=== PATIENT | female | born 1965 | race Caucasian/White ===

== ENCOUNTER 2022-01-21 14:49 | Emergency (ER) | payer MEDICAID ==
[2022-01-21 15:01] VITALS: BP 154/100
[2022-01-21] MEDS ORDERED: ACETAMINOPHEN 325 MG TABLET PO STA (15:08)
--- NOTE | 2022-01-21 15:13 | ED Physician Documentation ---
PD HPI BACK PAIN - Stated complaint Stated Complaint: BACK PAIN - Chief complaint Chief Complaint: Back Pain - History obtained from History obtained from: Patient - History of Present Illness Timing - onset: Today Timing - duration: Hours (5) Timing - details: Gradual onset Pain level max: 7 Pain level now: 5 Location: Mid, Lower, Right Quality: Pain, Spasm Associated symptoms: No: Fever, Weakness, Numbness, Incontinent of urine, Unable to urinate, Hematuria, Incontinent of stool Improves with: Rest Worsened by: Movement Contributing factors: No: Anticoagulated, Cancer, IVDA - Additional information Additional information: 56-year-old female states that she was returning from a cruise to [place] when she slipped and fell, landing on her right low back. She states minimal pain initially, but after the car ride home she began to develop increasing pain. Decided to come in for evaluation. Has not taken anything for pain. No loss of bowel or bladder control. No IV drug use. Does not take any home medications. Worse with movement, better with rest. Review of Systems Constitutional: denies: Fever, Chills Cardiac: denies: Chest pain / pressure, Palpitations Respiratory: denies: Cough GI: denies: Vomiting, Diarrhea : denies: Now EGA Skin: denies: Rash Musculoskeletal: denies: Neck pain Neurologic: denies: Focal weakness, Numbness, Headache PD PAST MEDICAL HISTORY - Past Medical History Past Medical History: No - Past Surgical History Past Surgical History: No - Present Medications Home Medications: Ambulatory Orders Medication Instructions Recorded Confirmed Meloxicam [Mobic] 7.5 mg PO BID PRN #20 tablet 01/21/22 Ondansetron Odt [Zofran] 4 mg TL Q6H PRN #10 tablet 01/21/22 Oxycodone HCl/Acetaminophen 1 - 2 each PO Q6H PRN #10 tablet 01/21/22 [Percocet 5-325 mg Tablet] - Allergies Allergies/Adverse Reactions: Allergies Allergy/AdvReac Type Severity Reaction Status Date / Time codeine AdvReac Emesis Verified 01/21/22 15:01 - Living Situation Living Situation: reports: With family Living Arrangement: reports: At home - Social History Does the pt smoke?: No Smoking Status: Never smoker - Family History Family history: reports: Non contributory PD ED PE NORMAL - Vitals Vital signs reviewed: Yes - General General: Alert and oriented X 3, No acute distress - HEENT HEENT: PERRL, Moist mucous membranes - Neck Neck: Supple, no meningeal sign - Cardiac Cardiac: RRR, Strong equal pulses - Respiratory Respiratory: No respiratory distress, Clear bilaterally - Abdomen Abdomen: Soft, Non tender, Non distended - Back Back: Other (Mild mid spine tenderness to palpation over the mid lumbar spine. No step-off or deformity. Neurovascular intact. Also has some midline tenderness over the sacrum.) - Derm Derm: Warm and dry - Neuro Neuro: Alert and oriented X 3, No motor deficit, No sensory deficit, Other (Normal bilateral lower extremity patellar and ankle jerk reflexes. Normal great toe extension bilaterally. no saddle anesthesia) - Psych Psych: Normal mood, Normal affect Results - Vitals Vitals: Vital Signs - 24 hr 01/21/22 14:58 Temperature 37.3 C Heart Rate 63 Respiratory 16 Rate Blood Pressure 154/100 H O2 Saturation 100 Oxygen O2 Source Room air - Rads (name of study) Lumbar spine x-ray Radiology: Final report received, EMP read contemporaneously, See rad report Sacrum and coccyx x-ray Radiology: Final report received, EMP read contemporaneously, See rad report PD MEDICAL DECISION MAKING - ED course Complexity details: reviewed results, re-evaluated patient, considered differential (No cauda equina, no spinal epidural abscess, no fracture, no aortic dissection or evidence of aneursym rupture), d/w patient, d/w family ED course: No acute findings on x-ray of the lumbar spine or sacrum. Pain improved. Ambulating well. No evidence of cauda equina, epidural abscess. No indication for advanced imaging. Will prescribe pain medication for home, encourage gentle stretching and have her follow-up with her doctor. Patient counseled regarding signs and symptoms for which I believe and urgent re-evaluation would be necess lorena. Patient with good understanding of and agreement to plan and is comfortable going home at this time This document was made in part using voice recognition software. While efforts are made to proofread this document, sound alike and grammatical errors may occur. Departure - Departure Disposition: 01 Home, Self Care Clinical Impression: Back strain Qualifiers: Encounter type: initial encounter Qualified Code(s): S39.012A - Strain of muscle, fascia and tendon of lower back, initial encounter Condition: Good Instructions: ED Sprain Strain Lumbar Follow-Up: your,doctor in 1 week [Other] Prescriptions: Meloxicam [Mobic] 7.5 mg PO BID PRN #20 tablet PRN Reason: Pain Oxycodone HCl/Acetaminophen [Percocet 5-325 mg Tablet] 1 - 2 each PO Q6H PRN #10 tablet PRN Reason: pain Ondansetron Odt [Zofran] 4 mg TL Q6H PRN #10 tablet PRN Reason: Nausea / Vomiting Comments: Your prescriptions were sent to [facility] in [place]. Please follow-up with your doctor for further care. Your x-rays do not show any acute abnormalities today. I am prescribing a short course of narcotic pain medication for you. These are potentially dangerous and addictive medications that should be used carefully. These medications may constipate you. Take an [id number]-tfuqtpq stool softener (docusate) twice daily with plenty of water while taking these medications. If you go 24 hours without a bowel movement, take [id number]-[id number] miralax, per package instructions. Do not drink or drive while taking these medications. If you received narcotic or sedating medications while in the emergency department, do not drive for 24 hours. Store this medication in a safe, secure place and out of reach of children. It is a violation of federal law to give or sell this medication to another person or to use in a manner other than prescribed. The ED will not refill narcotic prescriptions, including prescriptions lost or stolen. To dispose of unwanted medications: 1. [facility] at [address] in [place] has a medication drop box. They accept prescription medications (in pill form) Sunday through Sunday 9:00 a.m. to 5:00 p.m. 2. The [facility] [employer] accepts prescription medications (in pill form only) for disposal year round. Call for more information. 3. Contact the [facility] for the next [facility] sponsored prescription drug collection event. , [phone], or [phone]; Discharge Date/Time: 01/21/22 16:46
--- NOTE | 2022-01-21 16:29 | XRAY Report ---
PROCEDURE: Lumbar Spine 2 View INDICATIONS: fall, back pain TECHNIQUE: 2 views of the lumbar spine were acquired. COMPARISON: None. FINDINGS: Bones: 5 [id number] vertebrae are present. There is normal bony alignment. No vertebral body compression fractures. No suspicious bony lesions. Convex left thoracolumbar scoliosis present. Hyp ertrophic facet joints noted in the lower lumbar spine. Disc space narrowing and anterior aspect pres ent at the thoracolumbar junction Soft tissues: Overlying bowel gas pattern is normal. No suspicious soft tissue calcifications. Aor tic sclerotic vascular calcification noted IMPRESSION: Degenerative facet arthropathy without fracture or malalignment Reviewed by: Bret Puentes MD on 01/21/2022 3:28 PM CEDRIC Approved by: Bret Puentes MD on 01/21/2022 3:28 PM CEDRIC Station ID: [id number]
--- NOTE | 2022-01-21 16:30 | XRAY Report ---
PROCEDURE: Sacrum/Coccyx INDICATIONS: fall, back pain TECHNIQUE: 3 views of the sacrum and coccyx acquired. COMPARISON: None FINDINGS: Bones: No fractures or dislocations. No suspicious bony lesions. Soft tissues: Visualized bowel gas pattern is normal. No suspicious soft tissue densities. Multipl e phleboliths are present in the pelvis IMPRESSION: Unremarkable sacrococcygeal radiographs Reviewed by: Bret Puentes MD on 01/21/2022 3:29 PM AKDT Approved by: Bret Puentes MD on 01/21/2022 3:29 PM AKDT Station ID: [id number]
[2022-01-21] MEDS ORDERED: oxyCODONE 5 MG TABLET PO STA (16:36)
[2022-01-21] MEDS ORDERED: ONDANSETRON ODT 4 MG TABLET TL STA (16:36)
== END 2022-01-21 16:46 | disposition home or self-care (01) ==
LOC: ED 14:49
DX: S39.012A Strain of muscle, fascia and tendon of lower back, initial encounter (principal); W01.0XXA Fall on same level from slipping, tripping and stumbling without subsequent striking against object, initial encounter; Y92.814 Boat as the place of occurrence of the external cause
CPT/HCPCS: 72100; 72220; 99282; 99283; A9270; Q0162